=== PATIENT | male | born 1965 | race Caucasian/White ===

== ENCOUNTER 2016-05-28 22:14 | Emergency (ER) | payer BC ==
[~2016-05-28] VITALS: Ht 170.2 cm; Wt 74.8 kg
[~2016-05-28 22:14] MED LIST: hiv med
[2016-05-28] MEDS ORDERED: HYDROmorphone 1mg/ml Carpuject IVP ONE (22:45)
[2016-05-29] VITALS (12 sets, daily range): BP systolic 126–159; BP diastolic 64–96
[2016-05-29] MEDS ORDERED: Propofol 10mg/ml 20ml IV ONE
--- NOTE | 2016-05-29 00:40 | Emergency Room Report ---
History of Present Illness General Chief Complaint: Multiple Trauma/Fall Source: Patient, EMS Present Illness HPI Patient present with complaints of pain to the right elbow Was at a dinner democr[employer] when he fell off a chair Onto his extended right arm Had gross deformity to the right elbow Denies any headache or visual changes denies any neck pain denies any shoulder pain or hand pain the discomfort is mainly localized to the elbow itself 10 out of 10 Patient was given morphine in route here And was given Dilaudid here Denies any neuropathy Patient reports previous bilateral elbow fractures Allergies: Coded Allergies: No Known Allergies (Unverified , 05/28/16) Patient History Past Medical History: see triage record Pertinent Family History: none Reviewed Nursing Documentation: PMH: Agreed, PSxH: Agreed Nursing Documentation-PMH Past Medical History: No History, Except For Hx Cardiac Problems: Yes - HIV Review of Systems All Other Systems: negative except mentioned in HPI Physical Exam Vital Signs Date Time Temp Pulse Resp B/P Pulse Ox O2 Delivery O2 Flow Rate FiO2 05/28/16 22:10 76 18 143/97 99 Room Air Sp02 EP Interpretation: reviewed, normal General Appearance: well appearing, no apparent distress Head: normocephalic, atraumatic Eyes: bilateral eye EOMI, bilateral eye PERRL ENT: hearing grossly normal, normal pharynx, TMs + canals normal, uvula midline Neck: full range of motion, supple, no meningismus, no bony tend Respiratory: lungs clear, normal breath sounds, no rhonchi, no respiratory distress, no retraction, no accessory muscle use Cardiovascular #1: normal peripheral pulses, regular rate, rhythm, no edema, no gallop, no JVD, no murmur Gastrointestinal: normal bowel sounds, non tender, soft, no mass, no organomegaly, non-distended, no guarding, no hernia, no pulsatile mass, no rebound Genitourinary: no CVA tenderness Musculoskeletal: other - Patient has gross deformity to the right elbow, otherwise distally and proximally at the wrist and shoulder nontender and appropriately neurovascularly intact Neurologic: oriented x3, responsive, sensory intact Psychiatric: mood/affect normal Skin: normal color, no rash, warm/dry, palpation normal Lymphatic: normal inspection, no adenopathy Procedures Splinting Progress Posterior long-arm splint was placed on the right arm This does immobilize the elbow well Patient remains neurovascularly intact on my examination Sugar tong splint was also placed on the right elbow It does immobilize the elbow well Patient remains neurovascularly intact on recheck by myself And was given a sling Joint Reduction Progress After appropriate sedation, the placed traction on the right forearm, this does reduce the elbow dislocation well, with improved mobility and improved clinical alignment Patient tolerated the procedure well Was splinted as noted above Procedural Sedation Consent: Written Time out called at: 01:30 Pre-Sedation Assessment: Plan for Sedation Discuss Airway Assessment (Malampati): I Heart: normal Lungs: normal Abdomen: normal Extremities: normal Procedures/Plans: Closed Reduction Plan for Moderate Sedation: Propofol ASA Score: I Procedure Narrative Total [id number] time 10 minutes Start Time: 01:30 End Time: :40 Communication: No Apparent Limitation Mental Status: Awake Respiration: Unlabored Skin Condition: WNL Abdomen: WNL Nausea: NO Vomiting: NO Additional Comments: Patient was given 50 mg increments of propofol Total of 160 mg of propofol given Patient remained appropriate throughout the procedure respirations and oxygenation appropriate Medical Decision Making Diagnostic Impression: Primary Impression: Elbow fracture, right Additional Impression: Dislocation, elbow closed ER Course Patient has evidence of a fracture dislocation as noted above Patient required conscious sedation/procedural sedation for reduction Please refer to the note for full specifics patient had the procedure well At this time splinted as noted above as well Patient was provided information regarding orthopedic followup At this time continues to have appropriate neurovascular reevaluation and exam distally and stable for close outpatient followup Rhythm Strip Diag. Results EP Interpretation: yes Rate: 67 Rhythm: NSR, no PVC's, no ectopy Other X-Ray Diagnostic Results Other X-Ray Diagnostic Results #1: EP Interpretation: Yes Findings: other - Fracture distal elbow/humerus, dislocation posteriorly, positive soft tissue swelling, no obvious foreign body Number of Views: 3 - Right elbow Other X-Ray Diagnostic Results #2: EP Interpretation: Yes Findings: other - Improved alignment on the lateral view, evidence of fracture, no obvious foreign body soft tissue swelling Number of Views: 2 - ight elbow Last Vital Signs Date Time Temp Pulse Resp B/P Pulse Ox O2 Delivery O2 Flow Rate FiO2 05/28/16 22:10 76 18 143/97 99 Room Air Status: improved Disposition: HOME, SELF-CARE Condition: Improved Scripts Methocarbamol* (ROBAXIN-750*) 750 Mg Tablet 750 MG PO TID, #21 TAB 0 Refills Prov: CHAITANYA HEATH D.O. 05/29/16 Hydrocodone Bit/Acetaminophen 5-325* (NORCO 5-325*) 1 Each Tablet 1 TAB ORAL Q6H Y for For Pain, #20 TAB 0 Refills Prov: CHAITANYA HEATH D.O. 05/29/16 Ibuprofen* (MOTRIN*) 600 Mg Tablet 600 MG ORAL Q8H Y for For Pain, #30 TAB 0 Refills Prov: CHAITANYA HEATH D.O. 05/29/16 Referrals: NOT CHOSEN [facility]/,REFERRING (PCP) Additional Instructions: Patient is provided with the discharge instructions notified to follow up with primary doctor in the next 2-3 days otherwise return to the er with any worsening symptoms. CHAITANYA HEATH D.O. May 29, 2016 00:40
[2016-05-29] MEDS ORDERED: Ketorolac 30mg Inj IV ONE (02:00)
[2016-05-29] MEDS ORDERED: IBUPROFEN600 MG ORAL (02:59)
[2016-05-29] MEDS ORDERED: NORCO 5-325 TA1 EACH ORAL (02:59)
[2016-05-29] MEDS ORDERED: ROBAXIN-750750 MG PO (02:59)
--- NOTE | 2016-05-29 10:03 | Diagnostic Imaging Report ---
Indications: Fall, right elbow injury with pain and swelling Technique: 3 views right elbow Findings: Comparison: None Radius and ulna demonstrate complete bone width posterior dislocation relative to the humerus. There is a fracture through the lower margin of the radial head, proximal fragment displaced anteriorly with the humerus. Additional fracture fragments reside adjacent to the volar aspect of the distal humerus and project over the olecranon fossa of the ulna on lateral view. Surrounding soft tissues are swollen. No soft tissue gas identified. IMPRESSION: Posterior dislocation of the right elbow joint Associated displaced fractures of the right radial head, possibly distal humerus, possibly proximal ulna, apparently closed
--- NOTE | 2016-05-29 11:06 | Diagnostic Imaging Report ---
Indications: Right elbow fracture-dislocation, status post closed reduction and splinting Technique: 2 views right elbow Findings: Comparison: 05/28/2016 Overlying splint obscures fine bony and soft tissue detail. The dislocated right elbow joint now appears reduced with some residual mild widening. Multiple fracture fragments again noted adjacent to the radial head and distal humerus. Intra-articular fragment not excludable. IMPRESSION: Closed reduction of dislocated right elbow joint multiple fractures as previously described
== END 2016-05-29 03:40 | disposition home or self-care (01) ==
LOC: EDBD 22:14 → EMR 22:28
DX: S42.401A Unspecified fracture of lower end of right humerus, initial encounter for closed fracture (principal); W07.XXXA Fall from chair, initial encounter; Y92.9 Unspecified place or not applicable; Y99.8 Other external cause status
CPT/HCPCS: 24999; 73070; 73080; 96361; 96374; 96375; 99284; J1170; J1885; J2405; J2704